=== PATIENT | female | born 1975 | race Caucasian/White ===

== ENCOUNTER 2016-10-23 22:01 | Emergency (ER) | payer OTHER | END 2016-10-24 01:25 | disposition left against medical advice (07) | LOC: ER1 22:01 | DX: Z53.21 Procedure and treatment not carried out due to patient leaving prior to being seen by health care provider (principal) ==

== ENCOUNTER 2016-10-25 20:20 | Emergency (ER) | payer OTHER | END 2016-10-26 01:30 | disposition left against medical advice (07) | LOC: ER1 20:20 | DX: Z53.21 Procedure and treatment not carried out due to patient leaving prior to being seen by health care provider (principal) ==

== ENCOUNTER 2017-01-24 14:07 | Emergency (ER) | payer BC ==
[2017-01-24 15:59] LABS: HEMOGLOBIN 12.6 gm/dl (12.3-15.3); RED BLOOD COUNT 4.3 M/UL (4.00-5.10); WHITE BLOOD COUNT 6.5 K/UL (4.5-11.0)
[2017-01-24 16:22] LABS: BUN/CREATININE RATIO 19 (0-10)
== END 2017-01-24 20:45 | disposition home or self-care (01) ==
LOC: ER1 14:07
PROVIDERS: Student in an Organized Health Care Education/Training Program
DX: R07.9 Chest pain, unspecified (principal); R42 Dizziness and giddiness; R11.0 Nausea; E66.9 Obesity, unspecified; Z87.891 Personal history of nicotine dependence; Z90.49 Acquired absence of other specified parts of digestive tract; Z79.899 Other long term (current) drug therapy
CPT/HCPCS: 36415; 71010; 80053; 82550; 82553; 83690; 83874; 84484; 85025; 93005; 96374; 96375; 99285; J1885; J2405